=== PATIENT | female | born 1985 | race African-American/Black ===

== ENCOUNTER 2019-01-19 16:08 | Emergency (ER) | payer MEDICAID, OTHER ==
[~2019-01-19] VITALS: Ht 170.2 cm; Wt 64.0 kg
[2019-01-19 23:12] VITALS: BP 132/84
== END 2019-01-19 23:11 | disposition home or self-care (01) ==
LOC: ER 16:08
DX: R10.9 Unspecified abdominal pain (principal); M54.5 Low back pain; V43.92XA Unspecified car occupant injured in collision with other type car in traffic accident, initial encounter; Y93.9 Activity, unspecified; Y92.410 Unspecified street and highway as the place of occurrence of the external cause
CPT/HCPCS: 99282